=== PATIENT | female | born 1990 | race Caucasian/White ===

== ENCOUNTER 2018-11-04 11:41 | Emergency (ER) | payer SELFPAY ==
[2018-11-04 12:04] VITALS: BP 116/81; PULSE 74; TEMP 98.1; BMI 39.6
[2018-11-04] MEDS ORDERED: IBUPROFEN 400 MG TABLET (FP) PO ONE ×2 (12:24→12:28)
--- NOTE | 2018-11-04 12:28 | PDOC ---
History of Present Illness - General Chief Complaint: Back Pain Stated Complaint: CHRONIC BACK PAIN Time Seen by Provider: 11/04/18 12:20 History Source: Patient - History of Present Illness Pain Location: reports: back. denies: lower extremity, upper extremity Loss of Consciousness: no loss of consciousness Associated Symptoms (Fall): denies symptoms (back pain for several weeks) Past History - Travel Traveled outside of the country in the last 30 days: No Close contact w/someone who was outside of country & ill: No - Past Medical History Allergies/Adverse Reactions: Allergies Allergy/AdvReac Type Severity Reaction Status Date / Time No Known Allergies Allergy Verified 11/04/18 12:01 Home Medications: Ambulatory Orders Acetaminophen [Tylenol .Regular Strength -] 650 mg PO Q4H PRN #0 tablet Ibuprofen [Motrin -] 600 mg PO Q4H PRN #30 tablet 11/12/15 Ibuprofen 800 mg PO ACDIN 7 Days #30 tablet 11/04/18 Asthma: No Cancer: No Cardiac Disorders: No COPD: No Diabetes: No HTN: No Seizures: No Thyroid Disease: No - Suicide/Smoking/Psychosocial Hx Smoking Status: No Smoking History: Never smoked Have you smoked in the past 12 months: No Number of Cigarettes Smoked Daily: 0 Hx Alcohol Use: No Drug/Substance Use Hx: No Hx Substance Use Treatment: No Review of Systems - Review of Systems Is the patient limited [place]ian proficient: No Constitutional: No: Chills, Fever : No: Burning, Dysuria, Frequency, Flank Pain, Hematuria, Incontinence, Urgency, Testicular Pain Musculoskeletal: Yes: Back Pain. No: Muscle Pain, Muscle Weakness, Neck Pain Neurological: No: Numbness, Paresthesia, Tingling, Weakness, Unsteady Gait, Ataxia *Physical Exam - Vital Signs Last Vital Signs Temp Pulse Resp BP Pulse Ox 98.1 F 74 18 116/81 100 11/04/18 12:03 11/04/18 12:03 11/04/18 12:03 11/04/18 12:03 11/04/18 12:03 - Physical Exam General Appearance: Yes: Nourished Neck: positive: Rigid, Supple Respiratory/Chest: positive: Lungs Clear, Normal Breath Sounds Cardiovascular: positive: Regular Rhythm, Regular Rate, S1, S2 Gastrointestinal/Abdominal: positive: Soft Extremity: positive: Normal Capillary Refill, Normal Inspection, Normal Range of Motion, Other (+ tenderness over left sciatic notch, SLR + on the left at 45 degrees) Neurologic: positive: [employer] II-XII NML intact, Fully Oriented, Abnormal Cranial NS Medical Decision Making - Medical Decision Making 11/04/18 12:26 28y/o F with atraumatic back pain for several weeks denies b/b incontinencep or saddle anesthesia pain radiating from left buttocks to left leg no UTI sx pt has no PCP *DC/Admit/Observation/Transfer Diagnosis at time of Disposition: Back pain Qualifiers: Back pain location: low back pain Chronicity: chronic Back pain laterality: left Sciatica presence: with sciatica Sciatica laterality: sciatica of left side Qualified Code(s): M54.42 - Lumbago with sciatica, left side; G89.29 - Other chronic pain - Discharge Dispostion Disposition: HOME Condition at time of disposition: Stable Decision to Admit order: No - Prescriptions Prescriptions: Ibuprofen 800 mg PO ACDIN 7 Days #30 tablet - Referrals Referrals: Lucho Serrano MD [Staff Physician] - - Patient Instructions Printed Discharge Instructions: DI for Low Back Pain Additional Instructions: Please make appointment to see your primary care doctor take medication as prescribed Return to the Emergency Department if worsening symptoms occurs. - Post Discharge Activity
[2018-11-04 12:54] LABS: EPI CELLS 4.9 /HPF (0-5/HPF); PH,URINE 5.5 (5.0-8.0); URINE APPEARANCE CLEAR; URINE BACTERIA 137.3 /hpf (NEGATIVE); URINE BILIRUBIN NEGATIVE (NEGATIVE); URINE CASTS 2 /lpf (0-8); URINE COLOR YELLOW; URINE GLUCOSE (UA) NEGATIVE (NEGATIVE); URINE KETONE NEGATIVE (NEGATIVE); URINE LEUK ESTERASE 1+ (NEGATIVE); URINE NITRITE NEGATIVE (NEGATIVE); URINE PROTEIN NEGATIVE (NEGATIVE); URINE RBC 1 /hpf (0-4); URINE UROBILINOGEN 0.2 mg/dL (0.2-1.0); URINE WBC 7 /hpf (0-5)
[2018-11-04 13:04] LABS: HCG,QUALITATIVE URINE Negative
== END 2018-11-04 13:50 | disposition home or self-care (01) ==
LOC: JERFT 11:41
DX: M54.42 Lumbago with sciatica, left side (principal); G89.29 Other chronic pain
CPT/HCPCS: 81003; 84703; 87086; 99281-25

== ENCOUNTER 2018-12-05 20:24 | Emergency (ER) | payer SELFPAY | END 2018-12-05 23:38 | disposition home or self-care (01) | LOC: JER 20:24 ==